=== PATIENT | female | born 1940 | race Caucasian/White ===

== ENCOUNTER 2016-12-02 12:48 | Emergency (ER) | payer MEDICARE, OTHER ==
[~2016-12-02] VITALS: Ht 152.4 cm; Wt 95.6 kg
[~2016-12-02 12:48] MED LIST: ATEN25TA PO; BACL10TA PO
[2016-12-02 12:55] VITALS: Ht 152.4 cm; Wt 95.6 kg
--- OUTSIDE RECORDS SUMMARY | 2016-12-02 13:01 | XMS REPORT | Referral Summary ---
Author Author [facility] Organization [facility] Address Unknown Phone Unavailable Care Team Providers Care Lens Edge Grinder Machine Name Role Phone Bassam Jacobsen Primary Care Physician [phone] Encounter Date(s): 12/26/15 - 12/26/15 [facility], [address] [place] [id number] Discharge Disposition: 01-Home or Self Care Attending Physician: Kenneth Jacobsen MD Admitting Physician: Kenneth Jacobsen MD Vital Signs Most recent to 1 oldest [Reference Range]: Blood Pressure 134/68 mmHg [90-140/60-90 mmHg] (12/26/15 10:43 AM) Problem List Condition Effective Dates Status Health Status Informant Acute mucoid otitis Active media of left ear(Confirmed) Angina/Chest Active pain(Confirmed) Acute bursitis of Active right shoulder(Confirmed) Hypertension(Confirm Active ed) Cerumen Active impaction(Confirmed) Irritable bowel Active syndrome(Confirmed) ISD(Confirmed) Active Osteoarthritis(Confi Active rmed) Stress Active incontinence(Confirm ed) Urinary Active incontinence(Confirm ed) Allergies, Adverse Reactions, Alerts Substance Reaction Severity Status penicillin Rash Active Phenergan with Codeine Active Medications atenolol 25 mg oral tablet See Instructions, TAKE ONE TABLET BY MOUTH TWICE DAILY, # 180 tabs, [facility], TAKE ONE TABLET BY MOUTH TWICE DAILY Start Date: 09/20/15 Status: Ordered baclofen 10 mg oral tablet 10 mg 1 tabs, Oral, TID, as needed for muscle spasm, 0 Refill(s) Start Date: 12/20/15 Status: Ordered Multivitamins oral tablet 1 tabs, Oral, Daily, 0 Refill(s) Start Date: 06/10/14 Status: Ordered Results Chemistry Most recent to 1 oldest [Reference Range]: Sodium Lvl [135-144 141 mEq/L mEq/L] (12/26/15 11:25 AM) Potassium Lvl 4.4 mEq/L [3.5-5.2 mEq/L] (12/26/15 11:25 AM) Chloride [99-111 104 mEq/L mEq/L] (12/26/15 11:25 AM) CO2 [22-31 mEq/L] 28 mEq/L (12/26/15 11:25 AM) AGAP [3-20] 9 (12/26/15 11:25 AM) BUN [10-20 mg/dL] 16 mg/dL (12/26/15 11:25 AM) Glucose Lvl [70-99 96 mg/dL mg/dL] (12/26/15 11:25 AM) Creatinine Lvl 1.11 mg/dL [0.57-1.11 mg/dL] (12/26/15 11:25 AM) eGFR [>60 mL/min] 48 mL/min 1 *ABN* (12/26/15 11:25 AM) Calcium Lvl 8.7 mg/dL [8.9-10.5 mg/dL] *LOW* (12/26/15 11:25 AM) 1Result Comment: Multiply eGFR results by 1.21 for race. Immunizations Vaccine Date Refusal Reason tetanus-diphth toxoids (Td) adult/adol 07/14/12 tetanus-diphth toxoids (Td) adult/adol 06/18/97 Procedures Procedure Date Related Diagnosis Body Site R TKA [facility] 10/26/10 Knee replacement L 11/08/05 Cystourethroscopy, and 3rd suburethral 04/29/02 collagen implant Cystourethroscopy, and 2nd suburethral 04/01/02 collagen implant Cystourethroscopy, and 1st suburethral 02/23/02 collagen implant Gall bladder Hysterectomy Social History Social History Type Response Smoking Status Never smoker Assessment and Plan Extracted from: Title: Ambulatory Patient Education Author: Kenneth Jacobsen MD Date: Preventive Medicine Managing Your High Blood Pressure Blood pressure is a measurement of how forceful your blood is pressing against the alvarze of the arteries. Arteries are muscular tubes within the circulatory system. Blood pressure does not stay the same. Blood pressure rises when you are active, excited, or nervous; and it lowers during sleep and relaxation. If the numbers measuring your blood pressure stay above normal most of the time, you are at risk for health problems. High blood pressure (hypertension) is a long-term (chronic) condition in which blood pressure is elevated. A blood pressure reading is recorded as two numbers, such as 120 over 80 (or 120 /80). The first, higher number is called the systolic pressure. It is a measure of the pressure in your arteries as the heart beats. The second, lower number is called the diastolic pressure. It is a measure of the pressure in your arteries as the heart relaxes between beats. Keeping your blood pressure in a normal range is important to your overall health and prevention of health problems, such as heart disease and stroke. When your blood pressure is uncontrolled, your heart has to work harder than normal. High blood pressure is a very common condition in adults because blood pressure tends to rise with age. Men and women are equally likely to have hypertension but at different times in life. Before age 45, men are more likely to have hypertension. After 65 years of age, women are more likely to have it. Hypertension is especially common in Americans. This condition often has no signs or symptoms. The cause of the condition is usually not known. Your caregiver can help you come up with a plan to keep your blood pressure in a normal, healthy range. BLOOD PRESSURE STAGES Blood pressure is classified into four stages: normal, prehypertension, stage 1 , and stage 2. Your blood pressure reading will be used to determine what type of treatment, if any, is necessary. Appropriate treatment options are tied to these four stages: Normal Systolic pressure (mm Hg): below 120. Diastolic pressure (mm Hg): below 80. Prehypertension Systolic pressure (mm Hg): 120 to 139. Diastolic pressure (mm Hg): 80 to 89. Stage1 Systolic pressure (mm Hg): 140 to 159. Diastolic pressure (mm Hg): 90 to 99. Stage2 Systolic pressure (mm Hg): 160 or above. Diastolic pressure (mm Hg): 100 or above. RISKS RELATED TO HIGH BLOOD PRESSURE Managing your blood pressure is an important responsibility. Uncontrolled high blood pressure can lead to: A heart attack. A stroke. A weakened blood vessel (aneurysm). Heart failure. Kidney damage. Eye damage. Metabolic syndrome. Memory and concentration problems. HOW TO MANAGE YOUR BLOOD PRESSURE Blood pressure can be managed effectively with lifestyle changes and medicines ( if needed). Your caregiver will help you come up with a plan to bring your blood pressure within a normal range. Your plan should include the following: Education Read all information provided by your caregivers about how to control blood pressure. Educate yourself on the latest guidelines and treatment recommendations. New research is always being done to further define the risks and treatments for high blood pressure. Lifestylechanges Control your weight. Avoid smoking. Stay physically active. Reduce the amount of salt in your diet. Reduce stress. Control any chronic conditions, such as high cholesterol or diabetes. Reduce your alcohol intake. Medicines Several medicines (antihypertensive medicines) are available, if needed, to bring blood pressure within a normal range. Communication Review all the medicines you take with your caregiver because there may be side effects or interactions. Talk with your caregiver about your diet, exercise habits, and other lifestyle factors that may be contributing to high blood pressure. See your caregiver regularly. Your caregiver can help you create and adjust your plan for managing high blood pressure. RECOMMENDATIONS FOR TREATMENT AND FOLLOW-UP The following recommendations are based on current guidelines for managing high blood pressure in non adults. Use these recommendations to identify the proper follow-up period or treatment option based on your blood pressure reading. You can discuss these options with your caregiver. Systolic pressure of 120 to 139 or diastolic pressure of 80 to 89: Follow up with your caregiver as directed. Systolic pressure of 140 to 160 or diastolic pressure of 90 to 100: Follow up with your caregiver within 2 months. Systolic pressure above 160 or diastolic pressure above 100: Follow up with your caregiver within 1 month. Systolic pressure above 180 or diastolic pressure above 110: Consider antihypertensive therapy; follow up with your caregiver within 1 week. Systolic pressure above 200 or diastolic pressure above 120: Begin antihypertensive therapy; follow up with your caregiver within 1 week. This information is not intended to replace advice given to you by your health care provider. Make sure you discuss any questions you have with your health care provider. Document Released: 05/20/2013 Document Reviewed: 05/20/2013 ExitCare Patient Information 2015 [employer]. No follow up information was provided. Extracted from: Title: Office Visit Note Author: Kenneth Jacobsen MD Date: 12/26/15 Assessment/Plan Hx of renal failure, Hx of renal failure Will repeat the BMP since the hospitals lab was found to be normal. If it is again abnormal I would like to get a renal sonogram. Keep the appointment to see the Parts Room Clerk. Ordered: Basic Metabolic Panel Office Visit Level 3 Est 69032 Hypertension Ordered: Office Visit Level 3 Est 67793
--- OUTSIDE RECORDS SUMMARY | 2016-12-02 13:01 | XMS REPORT | Referral Summary ---
Author Author [facility] Organization [facility] Address Unknown Phone Unavailable Care Team Providers Care Attendant Child Activity Name Role Phone Bassam Jacobsen Primary Care Physician [phone] Encounter Date(s): 11/11/15 - 11/11/15 [facility], [address] [place] [id number] Discharge Disposition: 01-Home or Self Care Attending Physician: Kenneth Jacobsen MD Admitting Physician: Kenneth Jacobsen MD Vital Signs Most recent to 1 oldest [Reference Range]: Peripheral Pulse 59 bpm Rate [60-100 bpm] *LOW* (11/11/15 2:25 PM) Blood Pressure 170/72 mmHg [90-140/60-90 mmHg] *HI* (11/11/15 2:25 PM) SpO2 96 % (11/11/15 2:25 PM) Problem List Condition Effective Dates Status Health Status Informant Acute mucoid otitis Active media of left ear(Confirmed) Angina/Chest Active pain(Confirmed) Acute bursitis of Active right shoulder(Confirmed) Hypertension(Confirm Active ed) Cerumen Active impaction(Confirmed) Irritable bowel Active syndrome(Confirmed) ISD(Confirmed) Active Osteoarthritis(Confi Active rmed) Stress Active incontinence(Confirm ed) Urinary Active incontinence(Confirm ed) Allergies, Adverse Reactions, Alerts Substance Reaction Severity Status penicillin Rash Active Medications atenolol 25 mg oral tablet See Instructions, TAKE ONE TABLET BY MOUTH TWICE DAILY, # 180 tabs, eRx: [facility], TAKE ONE TABLET BY MOUTH TWICE DAILY Start Date: 09/20/15 Status: Ordered Maxzide-25 oral tablet 1 tabs, Oral, Daily, # 30 tabs, 4 Refill(s), Pharmacy: [facility] Start Date: 11/11/15 Status: Ordered Multivitamins oral tablet 1 tabs, Oral, Daily, 0 Refill(s) Start Date: 06/10/14 Status: Ordered Results No data available for this section Immunizations Vaccine Date Refusal Reason tetanus-diphth toxoids [...] Smoking Status Never smoker Assessment and Plan No data available for this section
--- OUTSIDE RECORDS SUMMARY | 2016-12-02 13:01 | XMS REPORT | Referral Summary ---
Author Author [facility], [facility] Organization [facility] Address Unknown Phone Unavailable Care Team Providers Care Software Engineer Developer Name Role Phone Bassam Jacobsen Primary Care Physician [phone] Encounter VC Date(s): 07/31/16 - 07/31/16 [facility], [address] [place] [id number] Discharge Disposition: 01-Home or Self Care Attending Physician: Khanh Jacobsen Admitting Physician: Khanh Jacobsen Vital Signs Most recent to 1 oldest [Reference Range]: Blood Pressure 160/78 mmHg [90-140/60-90 mmHg] *HI* (07/31/16 1:16 PM) Problem List Condition Effective Dates Status Health Status Informant Acute mucoid otitis Active media of left ear(Confirmed) Angina/Chest Active pain(Confirmed) Acute bursitis of Active right shoulder(Confirmed) Hypertension(Confirm Active ed) Cerumen Active impaction(Confirmed) Irritable bowel Active syndrome(Confirmed) ISD(Confirmed) Active Morbid Active patient obesity(Confirmed) Osteoarthritis(Confi Active rmed) Stress Active incontinence(Confirm ed) Urinary Active incontinence(Confirm ed) Allergies, Adverse Reactions, Alerts Substance Reaction Severity Status penicillin Rash Active Phenergan with Codeine Active Medications atenolol 25 mg oral tablet See Instructions, TAKE ONE TABLET BY MOUTH TWICE DAILY, # 180 tabs, eRx: [facility], TAKE ONE TABLET BY MOUTH TWICE DAILY Start Date: 04/06/16 Status: Ordered Results No data available for this section Immunizations Vaccine Date Refusal Reason pneumococcal 13-valent conjugate vaccine 01/30/16 tetanus-diphth toxoids (Td) adult/adol 07/14/12 tetanus-diphth toxoids [...] smoker Assessment and Plan Extracted from: Title: Additional wellness note Author: Jorge Granados RN Date: 07/31/16 Patient states that she can not spell or subtract large numbers well enough to answer those pieces of the cognitive exam. Extracted from: Title: Ambulatory Patient Education Author: Jorge Granados RN Date: 07/31/16 Geriatrics Fall Prevention in the Home Falls can cause injuries. They can happen to people of all ages. There are many things you can do to make your home safe and to help prevent falls. WHAT CAN I DO ON THE OUTSIDE OF MY HOME? Regularly fix the edges of walkways and driveways and fix any cracks. Remove anything that might make you trip as you walk through a door, such as a raised step or threshold. Trim any bushes or trees on the path to your home. Use bright outdoor lighting. Clear any walking paths of anything that might make someone trip, such as rocks or tools. Regularly check to see if handrails are loose or broken. Make sure that both sides of any steps have handrails. Any raised decks and porches should have guardrails on the edges. Have any leaves, snow, or ice cleared regularly. Use sand or salt on walking paths during winter. Clean up any spills in your garage right away. This includes oil or grease spills. WHAT CAN I DO IN THE BATHROOM? Use night lights. Install grab bars by the toilet and in the tub and shower. Do not use towel bars as grab bars. Use non-skid mats or decals in the tub or shower. If you need to sit down in the shower, use a plastic, non-slip stool. Keep the floor dry. Clean up any water that spills on the floor as soon as it happens. Remove soap buildup in the tub or shower regularly. Attach bath mats securely with double-sided non-slip rug tape. Do not have throw rugs and other things on the floor that can make you trip. WHAT CAN I DO IN THE BEDROOM? Use night lights. Make sure that you have a light by your bed that is easy to reach. Do not use any sheets or blankets that are too big for your bed. They should not hang down onto the floor. Have a firm chair that has side arms. You can use this for support while you get dressed. Do not have throw rugs and other things on the floor that can make you trip. WHAT CAN I DO IN THE KITCHEN? Clean up any spills right away. Avoid walking on wet floors. Keep items that you use a lot in [id number] places. If you need to reach something above you, use a strong step stool that has a grab bar. Keep electrical cords out of the way. Do not use floor yakut or wax that makes floors slippery. If you must use wax, use non-skid floor wax. Do not have throw rugs and other things on the floor that can make you trip. WHAT CAN I DO WITH MY STAIRS? Do not leave any items on the stairs. Make sure that there are handrails on both sides of the stairs and use them. Fix handrails that are broken or loose. Make sure that handrails are as long as the stairways. Check any carpeting to make sure that it is firmly attached to the stairs. Fix any carpet that is loose or worn. Avoid having throw rugs at the top or bottom of the stairs. If you do have throw rugs, attach them to the floor with carpet tape. Make sure that you have a light switch at the top of the stairs and the bottom of the stairs. If you do not have them, ask someone to add them for you. WHAT ELSE CAN I DO TO HELP PREVENT FALLS? Wear shoes that: Do not have high heels. Have rubber bottoms. Are comfortable and fit you well. Are closed at the toe. Do not wear sandals. If you use a stepladder: Make sure that it is fully opened. Do not climb a closed stepladder. Make sure that both sides of the stepladder are locked into place. Ask someone to hold it for you, if possible. Clearly garrett and make sure that you can see: Any grab bars or handrails. First and last steps. Where the edge of each step is. Use tools that help you move around (mobility aids) if they are needed. These include: Canes. Walkers. Scooters. Crutches. Turn on the lights when you go into a dark area. Replace any light bulbs as soon as they burn out. Set up your furniture so you have a clear path. Avoid moving your furniture around. If any of your floors are uneven, fix them. If there are any pets around you, be aware of where they are. Review your medicines with your doctor. Some medicines can make you feel dizzy. This can increase your chance of falling. Ask your doctor what other things that you can do to help prevent falls. This information is not intended to replace advice given to you by your health care provider. Make sure you discuss any questions you have with your health care provider. Document Released: 06/22/2010 Document Revised: 01/10/2016 Document Reviewed: Elsevier Interactive Patient Education 2016 [employer] No follow up information was provided.
--- OUTSIDE RECORDS SUMMARY | 2016-12-02 13:02 | XMS REPORT | Referral Summary ---
Author Organization Unknown Address Unknown Phone Unavailable Care Team Providers Care Loan Review Analyst Name Role Phone Bassam Jacobsen Primary Care Physician [phone] Encounter VC Date(s): 01/03/15 - 01/03/15 [facility], [place], Family [address] [place], [place] [id number] Discharge Diagnosis: Urinary incontinence Discharge Diagnosis: Osteoarthritis Discharge Disposition: Home or Self Care Attending Physician: Veena Oakes APRN Admitting Physician: Veena Oakes APRN Vital Signs Most recent to 1 oldest [Reference Range]: Blood Pressure 128/82 mmHg [90-140/60-90 mmHg] (01/03/15 8:44 AM) Problem List Condition Effective Dates Status Health Status Informant Angina/Chest Active pain(Confirmed) Acute bursitis of Active right shoulder(Confirmed) Hypertension(Confirm Active ed) Irritable bowel Active syndrome(Confirmed) ISD(Confirmed) Active Osteoarthritis(Confi Active rmed) Stress Active incontinence(Confirm ed) Urinary Active incontinence(Confirm ed) Allergies, Adverse Reactions, Alerts Substance Reaction Severity Status penicillin Rash Active Medications atenolol 25 mg oral tablet See Instructions, TAKE ONE TABLET BY MOUTH TWICE DAILY, # 90 tabs, 1 Refill(s), eRx: [facility], TAKE ONE TABLET BY MOUTH TWICE DAILY Special Instructions: TAKE ONE TABLET BY MOUTH TWICE DAILY Start Date: 11/01/14 Status: Ordered Mobic 7.5 mg oral tablet 1 tabs, Oral, BID, # 60 tabs, 0 Refill(s), Pharmacy: [facility], 1 tabs Oral BID Start Date: 08/31/14 Status: Ordered Multivitamins oral tablet 1 tabs, [...] Extracted from: Title: Ambulatory Patient Education Author: Veena Oakes APRN Date: Family Medicine Urinary Incontinence Urinary incontinence is the involuntary loss of urine from your bladder. CAUSES There are many causes of urinary incontinence. They include: Medicines. Infections. Prostatic enlargement, leading to overflow of urine from your bladder. Surgery. Neurological diseases. Emotional factors. SIGNS AND SYMPTOMS Urinary Incontinence can be divided into four types: 1. Urge incontinence. Urge incontinence is the involuntary loss of urine before you have the opportunity to go to the bathroom. There is a sudden urge to void but not enough time to reach a bathroom. 2. Stress incontinence. Stress incontinence is the sudden loss of urine with any activity that forces urine to pass. It is commonly caused by anatomical changes to the pelvis and sphincter areas of your body. 3. Overflow incontinence. Overflow incontinence is the loss of urine from an obstructed opening to your bladder. This results in a backup of urine and a resultant buildup of pressure within the bladder. When the pressure within the bladder exceeds the closing pressure of the sphincter, the urine overflows, which causes incontinence, similar to water overflowing a dam. 4. Total incontinence. Total incontinence is the loss of urine as a result of the inability to store urine within your bladder. DIAGNOSIS Evaluating the cause of incontinence may require: A thorough and complete medical and obstetric history. A complete physical exam. Laboratory tests such as a urine culture and sensitivities. When additional tests are indicated, they can include: An ultrasound exam. Kidney and bladder X-rays. Cystoscopy. This is an exam of the bladder using a narrow scope. Urodynamic testing to test the nerve function to the bladder and sphincter areas. TREATMENT Treatment for urinary incontinence depends on the cause: For urge incontinence caused by a bacterial infection, antibiotics will be prescribed. If the urge incontinence is related to medicines you take, your health care provider may have you change the medicine. For stress incontinence, surgery to re-establish anatomical support to the bladder or sphincter, or both, will often correct the condition. For overflow incontinence caused by an enlarged prostate, an operation to open the channel through the enlarged prostate will allow the flow of urine out of the bladder. In women with fibroids, a hysterectomy may be recommended. For total incontinence, surgery on your urinary sphincter may help. An artificial urinary sphincter (an inflatable cuff placed around the urethra) may be required. In women who have developed a hole-like passage between their bladder and vagina (vesicovaginal fistula ), surgery to close the fistula often is required. HOME CARE INSTRUCTIONS Normal daily hygiene and the use of pads or adult diapers that are changed regularly will help prevent odors and skin damage. Avoid caffeine. It can overstimulate your bladder. Use the bathroom regularly. Try about every 23 hours to go to the bathroom, even if you do not feel the need to do so. Take time to empty your bladder completely. After urinating, wait a minute. Then try to urinate again. For causes involving nerve dysfunction, keep a log of the medicines you take and a journal of the times you go to the bathroom. SEEK MEDICAL CARE IF: You experience worsening of pain instead of improvement in pain after your procedure. Your incontinence becomes worse instead of better. SEE IMMEDIATE MEDICAL CARE IF: You experience fever or shaking chills. You are unable to pass your urine. You have redness spreading into your groin or down into your thighs. MAKE SURE YOU: (Understand these instructions. Will watch your condition. Will get help right away if you are not doing well or get worse. Document Released: 10/03/2005 Document Revised: 06/16/2014 Document Reviewed: ExitCare Patient Information 2014 [employer]. No follow up information was provided. Extracted from: Title: Office Visit Note Author: Veena Oakes APRN Date: 01/03/15 Assessment/Plan Urinary incontinence Will review records and call pt. later today with a plan of care and possible trial of medication. Pt. to schedule exam, Mammogram, and Dexa screening. RTC/IC/ER if symptoms not improving or worsen. Ordered: Office Visit Level 3 Est 01490
--- OUTSIDE RECORDS SUMMARY | 2016-12-02 13:02 | XMS REPORT ---
Author Author Canelo Horowitz S Organization Unknown Address [address] [place], [place] [id number] Phone Care Team Providers Care Professor Of Literacy Name Role Phone Delmar SOLOMON PP Unavailable Unavailable Reason for Referral No Reason for Referral was given. History of Present Illness No HPI available. 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 Encounters * Appointment 01/01/2013 * RTNPT , Provider: Lor Lemos, Status: Avelino , Time: 8:00 AM 2012
--- OUTSIDE RECORDS SUMMARY | 2016-12-02 13:02 | XMS REPORT | Referral Summary ---
Author Author [facility], [facility] Organization [facility] Address Unknown Phone Unavailable Care Team Providers Care Auto Body Estimator Name Role Phone Bassam Jacobsen Primary Care Physician [phone] Encounter Date(s): 04/15/15 - 04/15/15 [facility], [address] [place] [id number] Discharge Diagnosis: Acute bronchitis Discharge Disposition: 01-Home or Self Care Attending Physician: Timothy Carroll MD Admitting Physician: Timothy Carroll MD Vital Signs Most recent to 1 oldest [Reference Range]: Temperature Tympanic 36.7 degC [36.6-38.1 degC] (04/15/15 3:55 PM) Respiratory Rate 16 br/min [14-20 br/min] (04/15/15 3:55 PM) Blood Pressure 158/80 mmHg [90-140/60-90 mmHg] *HI* (04/15/15 3:55 PM) Problem List Condition Effective Dates Status [...] MOUTH TWICE DAILY, # 180 tabs, eRx: [facility], TAKE ONE TABLET BY MOUTH TWICE DAILY Start Date: 09/20/15 Status: Ordered Multivitamins oral tablet 1 tabs, [...] smoker Assessment and Plan Extracted from: Title: Office Visit Note Author: Timothy Carroll MD Date: 04/15/15 Assessment/Plan Acute bronchitis I recommended Levaquin 500 mg daily for 10 days. She may use [id number] Mucinex. Continue Tessalon as needed. If symptoms persist or worsen or further problems develop follow-up. Ordered: Office Visit Level 3 Est 11010 Orders: levofloxacin, 500 mg 1 tabs, Oral, q24hr, X 10 days, # 10 tabs, 0 Refill(s), Pharmacy: [facility], 1 tabs Oral q24hr,x10 days
--- OUTSIDE RECORDS SUMMARY | 2016-12-02 13:02 | XMS REPORT | Referral Summary ---
Author Author [facility] Organization [facility] Address Unknown Phone Unavailable Care Team Providers Care Blasting Machine Operator Name Role Phone Bassam Jacobsen Primary Care Physician [phone] Encounter Date(s): 01/30/16 - 01/30/16 [facility], [address] [place] [id number] Discharge Disposition: 01-Home or Self Care Attending Physician: Kenneth Jacobsen MD Admitting Physician: Kenneth Jacobsen MD Vital Signs No data available for this section Problem List Condition Effective Dates Status Health [...] MOUTH TWICE DAILY, # 180 tabs, eRx: [facility], TAKE ONE TABLET BY MOUTH TWICE DAILY Start Date: 12/30/15 Status: Ordered baclofen 10 mg oral tablet [...]
--- OUTSIDE RECORDS SUMMARY | 2016-12-02 13:02 | XMS REPORT | Referral Summary ---
Author Author [facility] Organization [facility] Address Unknown Phone Unavailable Care Team Providers Care Junior Recruiter Name Role Phone Bassam Jacobsen Primary Care Physician [phone] Encounter VC Date(s): 12/09/15 - 12/09/15 [facility], [address] [place] [id number] Discharge Diagnosis: Viral URI Discharge Diagnosis: Hypertension Discharge Disposition: 01-Home or Self Care Attending Physician: Kenneth Jacobsen MD Admitting Physician: Kenneth Jacobsen MD Vital Signs Most recent to 1 oldest [Reference Range]: Blood Pressure 136/60 mmHg [90-140/60-90 mmHg] (12/09/15 9:11 AM) Problem List Condition Effective Dates Status [...] MOUTH TWICE DAILY, # 180 tabs, eRx: [facility], TAKE ONE TABLET BY MOUTH TWICE DAILY Start Date: 09/20/15 Status: Ordered Maxzide-25 oral tablet 1 tabs, Oral, Daily, # 30 tabs, 4 Refill(s), Pharmacy: [facility] Start Date: 11/11/15 Status: Ordered Multivitamins oral tablet 1 tabs, Oral, Daily, 0 Refill(s) Start Date: 06/10/14 Status: Ordered Promethazine VC with Codeine oral syrup 5 mL, Oral, q4hr, as needed for cough, # 120 mL, 0 Refill(s) Start Date: 12/09/15 Stop Date: 12/19/15 Status: Ordered Results Chemistry Most recent to 1 oldest [Reference Range]: Sodium Lvl [135-144 138 mEq/L mEq/L] (12/09/15 9:45 AM) Potassium Lvl 3.9 mEq/L [3.5-5.2 mEq/L] (12/09/15 9:45 AM) Chloride [99-111 100 mEq/L mEq/L] (12/09/15 9:45 AM) CO2 [22-31 mEq/L] 29 mEq/L (12/09/15 9:45 AM) AGAP [3-20] 9 (12/09/15 9:45 AM) BUN [10-20 mg/dL] 27 mg/dL *HI* (12/09/15 9:45 AM) Glucose Lvl [70-99 101 mg/dL mg/dL] *HI* (12/09/15 9:45 AM) Creatinine Lvl 1.82 mg/dL [0.57-1.11 mg/dL] *HI* (12/09/15 9:45 AM) eGFR [>60 mL/min] 27 mL/min 1 *ABN* (12/09/15 9:45 AM) Calcium Lvl 8.5 mg/dL [8.9-10.5 mg/dL] *LOW* (12/09/15 9:45 AM) 1Result Comment: Multiply eGFR results by [...] Patient Education Author: Kenneth Jacobsen MD Date: 12/08 ENT Upper Respiratory Infection Most upper respiratory infections (URIs) are a viral infection of the air passages leading to the lungs. A URI affects the nose, throat, and upper air passages. The most common type of URI is nasopharyngitis and is typically referred to as "the common cold." URIs run their course and usually go away on their own. Most of the time, a URI does not require medical attention, but sometimes a bacterial infection in the upper airways can follow a viral infection. This is called a secondary infection. Sinus and middle ear infections are common types of secondary upper respiratory infections. Bacterial pneumonia can also complicate a URI. A URI can worsen asthma and chronic obstructive pulmonary disease (COPD). Sometimes, these complications can require emergency medical care and may be life threatening. CAUSES Almost all URIs are caused by viruses. A virus is a type of germ and can spread from one person to another. RISKS FACTORS You may be at risk for a URI if: You smoke. You have chronic heart or lung disease. You have a weakened defense (immune) system. You are very young or very old. You have nasal allergies or asthma. You work in crowded or poorly ventilated areas. You work in health care facilities or schools. SIGNS AND SYMPTOMS Symptoms typically develop 23 days after you come in contact with a cold virus. Most viral URIs last 710 days. However, viral URIs from the influenza virus (flu virus) can last 1418 days and are typically more severe. Symptoms may include: Runny or stuffy (congested) nose. Sneezing. Cough. Sore throat. Headache. Fatigue. Fever. Loss of appetite. Pain in your forehead, behind your eyes, and over your cheekbones (sinus pain). Muscle aches. DIAGNOSIS Your health care provider may diagnose a URI by: Physical exam. Tests to check that your symptoms are not due to another condition such as: Strep throat. Sinusitis. Pneumonia. Asthma. TREATMENT A URI goes away on its own with time. It cannot be cured with medicines, but medicines may be prescribed or recommended to relieve symptoms. Medicines may help: Reduce your fever. Reduce your cough. Relieve nasal congestion. HOME CARE INSTRUCTIONS Take medicines only as directed by your health care provider. Gargle warm saltwater or take cough drops to comfort your throat as directed by your health care provider. Use a warm mist humidifier or inhale steam from a shower to increase air moisture. This may make it easier to breathe. Drink enough fluid to keep your urine clear or pale yellow. Eat soups and other clear broths and maintain good nutrition. Rest as needed. Return to work when your temperature has returned to normal or as your health care provider advises. You may need to stay home longer to avoid infecting others. You can also use a face mask and careful hand washing to prevent spread of the virus. Increase the usage of your inhaler if you have asthma. Do not use any tobacco products, including cigarettes, chewing tobacco, or electronic cigarettes. If you need help quitting, ask your health care provider. PREVENTION The best way to protect yourself from getting a cold is to practice good hygiene. Avoid oral or hand contact with people with cold symptoms. Wash your hands often if contact occurs. There is no clear evidence that vitamin C, vitamin E, echinacea, or exercise reduces the chance of developing a cold. However, it is always recommended to get plenty of rest, exercise, and practice good nutrition. SEEK MEDICAL CARE IF: You are getting worse rather than better. Your symptoms are not controlled by medicine. You have chills. You have worsening shortness of breath. You have brown or red mucus. You have yellow or brown nasal discharge. You have pain in your face, especially when you bend forward. You have a fever. You have swollen neck glands. You have pain while swallowing. You have white areas in the back of your throat. SEEK IMMEDIATE MEDICAL CARE IF: You have severe or persistent: Headache. Ear pain. Sinus pain. Chest pain. You have chronic lung disease and any of the following: Wheezing. Prolonged cough. Coughing up blood. A change in your usual mucus. You have a stiff neck. You have changes in your: Vision. Hearing. Thinking. Mood. MAKE SURE YOU: Understand these instructions. Will watch your condition. Will get help right away if you are not doing well or get worse. This information is not intended to replace advice given to you by your health care provider. Make sure you discuss any questions you have with your health care provider. Document Released: 02/19/2002 Document Revised: 06/14/2015 Document Reviewed: [facility] Patient Information 2015 [employer] [facility]. Fgxe-[id number] Kidney Failure Kidney failure happens when the kidneys cannot remove waste and excess fluid that naturally builds up in your blood after your body breaks down food. This leads to a dangerous buildup of waste products and fluid in the blood. HOME CARE Follow your diet as told by your doctor. Take all medicines as told by your doctor. Keep all of your dialysis appointments. Call if you are unable to keep an appointment. GET HELP RIGHT AWAY IF: You make a lot more or very little pee (urine). Your face or ankles puff up (swell). You develop shortness of breath. You develop weakness, feel tired, or you do not feel hungry (appetite loss). You feel poorly for no known reason. MAKE SURE YOU: Understand these instructions. Will watch your condition. Will get help right away if you are not doing well or get worse. This information is not intended to replace advice given to you by your health care provider. Make sure you discuss any questions you have with your health care provider. Document Released: 11/20/2010 Document Revised: 11/17/2012 Document Reviewed: [employer] Patient Information 2015 [employer]. No follow up information was provided.
--- OUTSIDE RECORDS SUMMARY | 2016-12-02 13:02 | XMS REPORT | Referral Summary ---
Author Author [facility] Organization [facility] Address Unknown Phone Unavailable Care Team Providers Care Feed Preparation Operator Name Role Phone Bassam Jacobsen Primary Care Physician [phone] Encounter Date(s): 12/14/15 - 12/14/15 [facility], [address] [place] [id number] Discharge Diagnosis: Drug reaction Discharge Diagnosis: Hypertension Discharge Diagnosis: Moderate dehydration Discharge Disposition: 01-Home or Self Care Attending Physician: Kenneth Jacobsen MD Admitting Physician: Kenneth Jacobsen MD Vital Signs Most recent to 1 oldest [Reference Range]: Temperature Tympanic 36.5 degC [36.6-38.1 degC] *LOW* (12/14/15 9:12 AM) Blood Pressure 122/52 mmHg [90-140/60-90 mmHg] (12/14/15 9:12 AM) Problem List Condition Effective Dates Status [...] MOUTH TWICE DAILY, # 180 tabs, eRx: [facility], TAKE ONE TABLET BY MOUTH TWICE DAILY Start Date: 09/20/15 Status: Ordered Maxzide-25 oral tablet 1 tabs, Oral, Daily, # 30 tabs, 4 Refill(s), Pharmacy: [facility] Start Date: 11/11/15 Status: Ordered Multivitamins oral tablet 1 tabs, Oral, Daily, 0 Refill(s) Start Date: 06/10/14 Status: Ordered Results Chemistry Most recent to 1 oldest [Reference Range]: Sodium Lvl [135-144 138 mEq/L mEq/L] (12/14/15 10:15 AM) Potassium Lvl 3.6 mEq/L [3.5-5.2 mEq/L] (12/14/15 10:15 AM) Chloride [99-111 103 mEq/L mEq/L] (12/14/15 10:15 AM) CO2 [22-31 mEq/L] 28 mEq/L (12/14/15 10:15 AM) AGAP [3-20] 7 (12/14/15 10:15 AM) BUN [10-20 mg/dL] 35 mg/dL *HI* (12/14/15 10:15 AM) Glucose Lvl [70-99 102 mg/dL mg/dL] *HI* (12/14/15 10:15 AM) Creatinine Lvl 1.93 mg/dL [0.57-1.11 mg/dL] *HI* (12/14/15 10:15 AM) eGFR [>60 mL/min] 25 mL/min 1 *ABN* (12/14/15 10:15 AM) Calcium Lvl 8.1 mg/dL [8.9-10.5 mg/dL] *LOW* (12/14/15 10:15 AM) 1Result Comment: Multiply eGFR results by [...] Patient Education Author: Kenneth Jacobsen MD Date: 12/13 Allergy Drug Allergy Allergic reactions to medicines are common. Some allergic reactions are mild. A delayed type of drug allergy that occurs 1 week or more after exposure to a medicine or vaccine is called serum sickness. A life-threatening, sudden (acute ) allergic reaction that involves the whole body is called anaphylaxis. CAUSES "True" drug allergies occur when there is an allergic reaction to a medicine. This is caused by overactivity of the immune system. First, the body becomes sensitized. The immune system is triggered by your first exposure to the medicine. Following this first exposure, future exposure to the same medicine may be life-threatening. Almost any medicine can cause an allergic reaction. Common ones are: Penicillin. Sulfonamides (sulfa drugs). Local anesthetics. X-ray dyes that contain iodine. SYMPTOMS Common symptoms of a minor allergic reaction are: Swelling around the mouth. An itchy red rash or hives. Vomiting or diarrhea. Anaphylaxis can cause swelling of the mouth and throat. This makes it difficult to breathe and swallow. Severe reactions can be fatal within seconds, even after exposure to only a trace amount of the drug that causes the reaction. HOME CARE INSTRUCTIONS If you are unsure of what caused your reaction, write down: The names of the medicines you took. How much medicine you took. How you took the medicine, such as whether you took a pill, injected the medicine, or applied it to your skin. All of the things you ate and drank. The date and time of your reaction. The symptoms of the reaction. You may want to follow up with an hydrotechnical specialist after the reaction has cleared in order to be tested to confirm the allergy. It is important to confirm that your reaction is an allergy, not just a side effect to the medicine. If you have a true allergy to a medicine, this may prevent that medicine and related medicines from being given to you when you are very ill. If you have hives or a rash: Take medicines as directed by your caregiver. You may use an szdu-wey-rhacteg antihistamine (diphenhydramine) as needed. Apply cold compresses to the skin or take baths in cool water. Avoid hot baths or showers. If you are severely allergic: Continuous observation after a severe reaction may be needed. Hospitalization is often required. Wear a medical alert bracelet or necklace stating your allergy. You and your family must learn how to use an anaphylaxis kit or give an epinephrine injection to temporarily treat an emergency allergic reaction. If you have had a severe reaction, always carry your epinephrine injection or anaphylaxis kit with you. This can be lifesaving if you have a severe reaction. Do not drive or perform tasks after treatment until the medicines used to treat your reaction have worn off, or until your caregiver says it is okay. If you have a drug allergy that was confirmed by your health care provider: Carry information about the drug allergy with you at all times. Always check with a pharmacist before taking any jtsz-tth-lgkdtft medicine. SEEK MEDICAL CARE IF: You think you had an allergic reaction. Symptoms usually start within 30 minutes after exposure. Symptoms are getting worse rather than better. You develop new symptoms. The symptoms that brought you to your caregiver return. SEEK IMMEDIATE MEDICAL CARE IF: You have swelling of the mouth, difficulty breathing, or wheezing. You have a tight feeling in your chest or throat. You develop hives, swelling, or itching all over your body. You develop severe vomiting or diarrhea. You feel faint or pass out. This is an emergency. Use your epinephrine injection or anaphylaxis kit as you have been instructed. Call for emergency medical help. Even if you improve after the injection, you need to be examined at a hospital emergency department. MAKE SURE YOU: Understand these instructions. Will watch your condition. Will get help right away if you are not doing well or get worse. This information is not intended to replace advice given to you by your health care provider. Make sure you discuss any questions you have with your health care provider. Document Released: 08/26/2006 Document Revised: 06/14/2015 Document Reviewed: [facility] Patient Information 2015 [employer] [facility]. Home Health Care Dehydration, Adult Dehydration is when you lose more fluids from the body than you take in. Vital organs like the kidneys, brain, and heart cannot function without a proper amount of fluids and salt. Any loss of fluids from the body can cause dehydration. CAUSES Vomiting. Diarrhea. Excessive sweating. Excessive urine output. Fever. SYMPTOMS Mild dehydration Thirst. Dry lips. Slightly dry mouth. Moderate dehydration Very dry mouth. Sunken eyes. Skin does not bounce back quickly when lightly pinched and released. Dark urine and decreased urine production. Decreased tear production. Headache. Severe dehydration Very dry mouth. Extreme thirst. Rapid, weak pulse (more than 100 beats per minute at rest). Cold hands and feet. Not able to sweat in spite of heat and temperature. Rapid breathing. Blue lips. Confusion and lethargy. Difficulty being awakened. Minimal urine production. No tears. DIAGNOSIS Your caregiver will diagnose dehydration based on your symptoms and your exam. Blood and urine tests will help confirm the diagnosis. The diagnostic evaluation should also identify the cause of dehydration. TREATMENT Treatment of mild or moderate dehydration can often be done at home by increasing the amount of fluids that you drink. It is best to drink small amounts of fluid more often. Drinking too much at one time can make vomiting worse. Refer to the home care instructions below. Severe dehydration needs to be treated at the hospital where you will probably be given intravenous (IV) fluids that contain water and electrolytes. HOME CARE INSTRUCTIONS Ask your caregiver about specific rehydration instructions. Drink enough fluids to keep your urine clear or pale yellow. Drink small amounts frequently if you have nausea and vomiting. Eat as you normally do. Avoid: Foods or drinks high in sugar. Carbonated drinks. Juice. Extremely hot or cold fluids. Drinks with caffeine. Fatty, greasy foods. Alcohol. Tobacco. Overeating. Gelatin desserts. Wash your hands well to avoid spreading bacteria and viruses. Only take kqph-fwb-mlkcjzf or prescription medicines for pain, discomfort , or fever as directed by your caregiver. Ask your caregiver if you should continue all prescribed and over-the- counter medicines. Keep all follow-up appointments with your caregiver. SEEK MEDICAL CARE IF: You have abdominal pain and it increases or stays in one area (localizes) . You have a rash, stiff neck, or severe headache. You are irritable, sleepy, or difficult to awaken. You are weak, dizzy, or extremely thirsty. SEEK IMMEDIATE MEDICAL CARE IF: You are unable to keep fluids down or you get worse despite treatment. You have frequent episodes of vomiting or diarrhea. You have blood or green matter (bile) in your vomit. You have blood in your stool or your stool looks black and tarry. You have not urinated in 6 to 8 hours, or you have only urinated a small amount of very dark urine. You have a fever. You faint. MAKE SURE YOU: Understand these instructions. Will watch your condition. Will get help right away if you are not doing well or get worse. This information is not intended to replace advice given to you by your health care provider. Make sure you discuss any questions you have with your health care provider. Document Released: 08/26/2006 Document Revised: 11/17/2012 Document Reviewed: [employer] Patient Information [address] [employer]. No follow up information was provided. Extracted from: Title: Office Visit Note Author: Kenneth Jacobsen MD Date: 12/14/15 Assessment/Plan Acute renal failure (ARF) Recheck the renal function and referral to a rigging worker. Stop the Maxzide and avoid the Advil, Aleve and Motrin. Ordered: Basic Metabolic Panel Office Visit Level 4 Est 14455 Drug reaction make a note of the reaction and place it in the allergic reaction list. Ordered: Office Visit Level 4 Est 50198 Hypertension Ordered: Office Visit Level 4 Est 61399 Moderate dehydration Encourage to drink the fluids. Ordered: Office Visit Level 4 Est 77553
--- OUTSIDE RECORDS SUMMARY | 2016-12-02 13:02 | XMS REPORT | Continuity of Care Document ---
Author Author [facility] Address Unknown Phone Unavailable Allergies Medications Problems Procedures Results Encounters ACCT No. Visit Date/Time Discharge Status Pt. Type Provider Facility Loc./Unit Complaint [id number] 02/14/2015 14:10:00 2014 23:59:59 CLS Outpatient [facility]
--- OUTSIDE RECORDS SUMMARY | 2016-12-02 13:02 | XMS REPORT | Referral Summary ---
Author Author [facility] Organization [facility] Address Unknown Phone Unavailable Care Team Providers Care Compensation Associate Name Role Phone Bassam Jacobsen Primary Care Physician [phone] Encounter VC Date(s): 10/27/15 - 10/27/15 [facility], Family [address] [place] [id number] Discharge Disposition: 01-Home or Self Care Attending Physician: Kenneth Jacobsen MD Admitting Physician: Kenneth Jacobsen MD Vital Signs Most recent to 1 oldest [Reference Range]: Blood Pressure 150/84 mmHg [90-140/60-90 mmHg] *HI* (10/27/15 10:07 AM) Problem List Condition Effective Dates Status [...] MOUTH TWICE DAILY, # 180 tabs, eRx: [facility], TAKE ONE TABLET BY MOUTH [...] Patient Education Author: Kenneth Jacobsen MD Date: ENT Cerumen Impaction The structures of the external ear canal secrete a waxy substance known as cerumen. Excess cerumen can build up in the ear canal, causing a condition known as cerumen impaction. Cerumen impaction can cause ear pain and disrupt the function of the ear. The rate of cerumen production differs for each individual. In certain individuals, the configuration of the ear canal may decrease his or her ability to naturally remove cerumen. CAUSES Cerumen impaction is caused by excessive cerumen production or buildup. RISK FACTORS Frequent use of swabs to clean ears. Having narrow ear canals. Having eczema. Being dehydrated. SIGNS AND SYMPTOMS Diminished hearing. Ear drainage. Ear pain. Ear itch. TREATMENT Treatment may involve: Xwfz-itm-wurvxun or prescription ear drops to soften the cerumen. Removal of cerumen by a health care provider. This may be done with: Irrigation with warm water. This is the most common method of removal. Ear curettes and other instruments. Surgery. This may be done in severe cases. HOME CARE INSTRUCTIONS Take medicines only as directed by your health care provider. Do not insert objects into the ear with the intent of cleaning the ear. PREVENTION Do not insert objects into the ear, even with the intent of cleaning the ear. Removing cerumen as a part of normal hygiene is not necessary, and the use of swabs in the ear canal is not recommended. Drink enough water to keep your urine clear or pale yellow. Control your eczema if you have it. SEEK MEDICAL CARE IF: You develop ear pain. You develop bleeding from the ear. The cerumen does not clear after you use ear drops as directed. This information is not intended to replace advice given to you by your health care provider. Make sure you discuss any questions you have with your health care provider. Document Released: 10/03/2005 Document Revised: 06/14/2015 Document Reviewed: ExitCare Patient Information 2015 [employer] [facility], [facility]. No follow up information was provided. Extracted from: Title: Office Visit Note Author: Kenneth Jacobsen MD Date: 10/27/15 Assessment/Plan Cerumen impaction as above. Suggest using baby oil on a Q-tip for the external canals. Ordered: Office Visit Level 3 Est [address]009
--- OUTSIDE RECORDS SUMMARY | 2016-12-02 13:02 | XMS REPORT | Referral Summary ---
Author Author [facility] Organization [facility] Address Unknown Phone Unavailable Care Team Providers Care Tape Control Skin Or Spar Mill Operator Name Role Phone Bassam Jacobsen Primary Care Physician [phone] Encounter Date(s): 04/06/15 - 04/06/15 [facility], [address] [place] [id number] [[email or web address] Discharge Disposition: 01-Home or Self Care Attending Physician: Kenneth Jacobsen MD Admitting Physician: Kenneth Jacobsen MD Vital Signs Most recent to 1 oldest [Reference Range]: Blood Pressure 162/86 mmHg [90-140/60-90 mmHg] *HI* (04/06/15 1:06 PM) Problem List Condition Effective Dates Status [...] MOUTH TWICE DAILY, # 180 tabs, eRx: [facility], TAKE ONE TABLET BY MOUTH [...] Patient Education Author: Kenneth Jacobsen MD Date: Family Medicine Otitis Media Otitis media is redness, soreness, and swelling (inflammation) of the middle ear. Otitis media may be caused by allergies or, most commonly, by infection. Often it occurs as a complication of the common cold. SIGNS AND SYMPTOMS Symptoms of otitis media may include: Earache. Fever. Ringing in your ear. Headache. Leakage of fluid from the ear. DIAGNOSIS To diagnose otitis media, your health care provider will examine your ear with an otoscope. This is an instrument that allows your health care provider to see into your ear in order to examine your eardrum. Your health care provider also will ask you questions about your symptoms. TREATMENT Typically, otitis media resolves on its own within 35 days. Your health care provider may prescribe medicine to ease your symptoms of pain. If otitis media does not resolve within 5 days or is recurrent, your health care provider may prescribe antibiotic medicines if he or she suspects that a bacterial infection is the cause. HOME CARE INSTRUCTIONS Take your medicine as directed until it is gone, even if you feel better after the first few days. Only take llsu-cfn-gyeeihh or prescription medicines for pain, discomfort, or fever as directed by your health care provider. Follow up with your health care provider as directed. SEEK MEDICAL CARE IF: You have otitis media only in one ear, or bleeding from your nose, or both. You notice a lump on your neck. You are not getting better in 35 days. You feel worse instead of better. SEEK IMMEDIATE MEDICAL CARE IF: You have pain that is not controlled with medicine. You have swelling, redness, or pain around your ear or stiffness in your neck. You notice that part of your face is paralyzed. You notice that the bone behind your ear (mastoid) is tender when you touch it. MAKE SURE YOU: Understand these instructions. Will watch your condition. Will get help right away if you are not doing well or get worse. Document Released: 05/31/2005 Document Revised: 08/31/2014 Document Reviewed: ExitCare Patient Information 2015 [employer], [facility]. This information is not intended to replace advice given to you by your health care provider. Make sure you discuss any questions you have with your health care provider. No follow up information was provided. Extracted from: Title: Office Visit Note Author: Kenneth Jacobsen MD Date: 04/06/15 Assessment/Plan Acute mucoid otitis media of left ear Rx for a Z-pack. Phenergan VC with codeine. Ordered: Office Visit Level 3 Est 45391
--- NOTE | 2016-12-02 13:14 | ERPDOC ---
Departure Disposition Decision Date: Dec 02, 2016 Disposition Decision Time: 14:22 (VALERIA GLASER APRN) Disposition: 01 DISCHARGED HOME, SELF-CARE Impression Impression (VALERIA GLASER APRN) Impression: Primary Impression: Viral gastroenteritis Condition: Stable Seen By: Mid-level only (VALERIA GLASER APRN) Referrals: ANA BLOOM MD (Family) Patient Instructions: Gastroenteritis (ED) Problems/Meds/Labs Reviewed?: Yes Medications reviewed and manag: Yes (VALERIA GLASER APRN) Additional Instructions: Your labs and history are consistent with a viral gastroenteritis (see dismissal packet). Stay well hydrated. Drink 8 glasses of water daily. Eat a BRAT diet:Brat Diet Includes: Bananas, Rice, Applesauce, and [place]. Rest. Follow treatment plan. If symptoms are not improving in the next 3-4 days follow with your PCP for re- evaluation, sooner if worsting symptoms. Follow up care ordered?: Yes Mental Status: Alert, Oriented (VALERIA GLASER APRN) HPI - Abdominal Pain General Chief Complaint: Nausea,Vomiting,Diarrhea Stated Complaint: V/D Time Seen by Provider: 13:11 Source: patient (VALERIA GLASER APRN) Time Seen by Provider: 13:11 (LATOYA DE JESUS DO) HPI - Abdominal Pain Initial Comments 76 YO F presents to ED with 2 days of greenish diarrhea. Patient says that her brought her home food from the [employer] the night before symptoms began. Says when she woke up the next morning she vomited a large amount. Then she developed the diarrhea. Patient says she has had several diarrhea stool for past 2 days (unable to tell provider home many). Patient denies fever, chills, nausea, any additional vomiting. Admits mild generalized "soreness in abdomen". Patient says she feel tired that is why she came to the ED. Patient has been taking Imodium and Kaopectate for diarrhea. Patient says she is able to eat toast without any diarrhea but other foods "bring on diarrhea". Pain Scale: Now: 0/10 Location: generalized abdomen Associated Symptoms: other (diarrhea), DENIES: back pain, chest pain, diaphoresis, fatigue, fever/chills, headache, heartburn, rash, shortness of breath, swelling/mass in abdomen, syncope, weakness (VALERIA GLASER A SPEECH PATHOLOGIST ASSISTANT) Allergies: Coded Allergies: Penicillins (Verified Allergy, Unknown, RASH, 12/02/16) adhesive (Verified Allergy, Unknown, 12/02/16) Past History Unable to Obtain PMH Due to: other (Patient is poor historian) (VALERIA GLASER SPEECH PATHOLOGIST ASSISTANT) Past Medical History Metabolic: hypertension Cardiac: DENIES: angina Respiratory: DENIES: asthma GI: gallbladder disease, ulcers Female: UTI, renal insufficiency Neurological: other (see neurologist but unsure why), DENIES: seizures Psychological: DENIES: depression (VALERIA GLASER SPEECH PATHOLOGIST ASSISTANT) Surgical History General: appendix, gallbladder, tonsils Reproductive/: hysterectomy Joint: knee (VALERIA GLASER SPEECH PATHOLOGIST ASSISTANT) Family History Family PMH: FOUND: NM, diabetes, hypertension (VALERIA GLASER SPEECH PATHOLOGIST ASSISTANT) Vaccines Hx Influenza Vaccination: No Hx Pneumococcal Vaccination: No (ADELE GLASERS A SPEECH PATHOLOGIST ASSISTANT) Social History Sexuality: male partner (VALERIA GLASER APRN) Review of Systems Constitutional Constitutional: DENIES: chills, dizziness, fever (ADELE GLASERS A SPEECH PATHOLOGIST ASSISTANT) Eyes General: DENIES: erythema, exudate Lids/Accessories: DENIES: erythema, swelling (ADELE GLASERS A SPEECH PATHOLOGIST ASSISTANT) ENMT Ears: DENIES: pain Hearing: DENIES: hearing loss Sinuses: DENIES: congestion, rhinorrhea Mouth/Throat: DENIES: sore throat (ADELE GLASERS A SPEECH PATHOLOGIST ASSISTANT) Cardiovascular Cardiac: DENIES: chest pain, murmur Rhythm/Rate: DENIES: palpitations (ADELE GLASERS A SPEECH PATHOLOGIST ASSISTANT) Pulmonary Respiratory: DENIES: cough, dyspnea (ADELE GLASERS A SPEECH PATHOLOGIST ASSISTANT) GI Upper Abdomen: pain, see HPI, vomiting, DENIES: nausea Lower Abdomen: diarrhea, pain (ADELE GLASERS A SPEECH PATHOLOGIST ASSISTANT) General: DENIES: dysuria, pain (ADELE GLASERS A SPEECH PATHOLOGIST ASSISTANT) Musculoskeletal General: DENIES: joint pain, pain, tenderness (ADELE GLASERS A SPEECH PATHOLOGIST ASSISTANT) Integumentary Skin: DENIES: color change, itching, rash (ADELE GLASERS A SPEECH PATHOLOGIST ASSISTANT) Neurological General: DENIES: ataxia, change in strength, numbness, paralysis/paresis, weakness (ADELE GLASERS A SPEECH PATHOLOGIST ASSISTANT) Psychiatric Psychiatric: DENIES: anxiety, depression, nervousness (ADELE GLASERS A SPEECH PATHOLOGIST ASSISTANT) Physical Exam General General Nourishment: well nourished, well developed, no acute distress, adult General Body Habitus: well groomed (ADELE GLASERS A SPEECH PATHOLOGIST ASSISTANT) Vitals and Pain First Documented Vital Signs Date Time Temp Pulse Resp B/P Pulse Ox O2 Delivery O2 Flow Rate FiO2 12/02/16 12:55 97.7 88 20 202/88 96 Room Air (LATOYA DE JESUS DO) Vitals and Pain Weight: Kilograms: 95.600 Height (feet): 5 Height (inches): 0 Triage Pain Scale: (ADELE GLASERS A SPEECH PATHOLOGIST ASSISTANT) Eyes (brief) Eyes Brief: found: EOMI, PERRL (ADELE GLASERS A SPEECH PATHOLOGIST ASSISTANT) ENMT (brief) ENMT Brief: FOUND: TM clear, TM good light reflex, mucosa moist, NOT FOUND: nasal exudate, nasal swelling, pharnyx erythema (ADELE GLASERS A SPEECH PATHOLOGIST ASSISTANT) Neck (brief) Neck: FOUND: trachea midline, NOT FOUND: adenopathy, spasm, tenderness, thyromegaly (ADELE GLASERS A SPEECH PATHOLOGIST ASSISTANT) Respiratory (brief) Respiratory: FOUND: clear all sullivan, equal bilaterally, symmetrical (ADELE GLASERS A SPEECH PATHOLOGIST ASSISTANT) Cardiovascular (brief) Cardiac: FOUND: regular rate, regular rhythm (ADELE GLASERS A SPEECH PATHOLOGIST ASSISTANT) Abdomen Inspection: NOT FOUND: distention Palpation: FOUND: soft, tender (mild epigastric TTP), NOT FOUND: involuntary guarding, voluntary guarding Auscultation: FOUND: hypoactive (x4) (ADELE GLASERS A SPEECH PATHOLOGIST ASSISTANT) Musculoskeletal (brief) Musculoskeletal Brief: NOT FOUND: deformity, tenderness (ADELE GLASERS A SPEECH PATHOLOGIST ASSISTANT) Integumentary (brief) Integumentary Brief: FOUND: dry, pink, warm (ADELE GLASERS A SPEECH PATHOLOGIST ASSISTANT) Neurologic (brief) Neurological Brief: FOUND: CN w/o gross def to obs, motor-no gross deficits, sensory-no gross deficits (ADELE GLASERS A SPEECH PATHOLOGIST ASSISTANT) Psychiatric (brief) Psychiatric Brief: FOUND: alert, normal affect, oriented (ADELE GLASERS A SPEECH PATHOLOGIST ASSISTANT ) Differential Diagnoses Considering: Dehydration, Diverticulitis, Food Poisoning, Gastroenteritis, Hypokalemia, Viral Syndrome (ADELE GLASERS A SPEECH PATHOLOGIST ASSISTANT) Progress Results/Orders Orders Procedure Category Date Status Time Cbc W/Auto LAB 12/02/16 Complete Diff-Reflex Manual Cmp - Comprehensive LAB 12/02/16 Complete Metabolic (LATOYA DE JESUS DO) Lab Results Laboratory Tests Test 12/02/16 13:43 White Blood Count 5.9T/MM3 Red Blood Count 5.31M/MM3 Hemoglobin 15.4GM/DL Hematocrit 46.5% Mean Corpuscular Volume 87.6UM3 Mean Corpuscular Hemoglobin 29.0UUG Mean Corpuscular Hemoglobin Concent 33.1GM/DL RDW Standard Deviation 42.6FL Platelet Count 166T/MM3 Mean Platelet Volume 10.4UM3 Immature Granulocyte % (Auto) 0.2% Neutrophils (%) (Auto) 47.7% Lymphocytes (%) (Auto) 33.5% Monocytes (%) (Auto) 12.2% Eosinophils (%) (Auto) 6.1% Basophils (%) (Auto) 0.3% Absolute Immature Granulocyte (auto 0.01T/MM3 Absolute Neutrophils (auto) 2.8T/MM3 Absolute Lymphocytes (auto) 2.0T/MM3 Absolute Monocytes (auto) 0.7T/MM3 Absolute Eosinophils (auto) 0.4T/MM3 Absolute Basophils (auto) 0.0T/MM3 Turbidity < 20 Sodium Level 144MEQ/L Potassium Level 4.1MEQ/L Chloride Level 112MEQ/L Carbon Dioxide Level 24MEQ/L Anion Gap 8MEQ/L Blood Urea Nitrogen 16.0MG/DL Creatinine 1.1MG/DL Glomerular Filtration Rate Calc 48 BUN/Creatinine Ratio 15RATIO Glucose Level 93MG/DL Calculated Osmolality 278MOSM/KG Calcium Level 8.9MG/DL Total Bilirubin 0.90MG/DL Icterus Index < 2 Aspartate Amino Transf (AST/SGOT) 36U/L Alanine Aminotransferase (ALT/SGPT) 32U/L Alkaline Phosphatase 56U/L Total Protein 6.8G/DL Albumin 3.7G/DL Globulin 3.1G/DL Albumin/Globulin Ratio 1.2RATIO Chemistry Specimen Hemolysis < 15 (LATOYA DE JESUS DO) Progress Progress WBC 5.9 viral shift Patient potassium is normal, chemistries do not indicate dehydration. Patient has had no diarrhea stools while in the ER. I discussed with patient lab results. Labs, exam finding and HPI consistent with viral gastroenteritis. I discussed treatment plan, follow-up as needed with PCP next week if not improving and return precautions which patient verbalized understanding. (VALERIA GLASER APRN) VALERIA GLASER APRN Dec 02, 2016 13:14 LATOYA DE JESUS DO Dec 02, 2016 20:05
[2016-12-02] MEDS ORDERED: BISM262O PO (13:15)
[2016-12-02] MEDS ORDERED: [UNRECOGNIZED DRUG - CODE] PO (13:15)
--- NOTE | 2016-12-02 13:15 | NUR ---
PROVIDER Solange GLASER APRN AT BEDSIDE FOR EXAM.
[2016-12-02] MEDS ORDERED: NAPR220T61 PO (13:16)
--- OUTSIDE RECORDS SUMMARY | 2016-12-02 13:35 | XMS REPORT | Continuity of Care Document ---
Author Author [facility] Address Unknown Phone Unavailable Allergies Medications Problems Procedures Results Encounters ACCT No. Visit Date/Time Discharge Status Pt. Type Provider Facility Loc./Unit Complaint [id number] 02/14/2015 14:10:00 2014 23:59:59 C[facility]
[2016-12-02 13:48] LABS: BASOPHILS % (AUTO) 0.3 % (0-2); EOSINOPHILS # (AUTO) 0.4 T/MM3 (0-0.5); EOSINOPHILS % (AUTO) 6.1 % (0-4); HCT - HEMATOCRIT 46.5 % (36-46); HGB - HEMOGLOBIN 15.4 GM/DL (12-16); IMMATURE GRANULOCYTE # (AUTO) 0.01 T/MM3 (0.00-0.03); IMMATURE GRANULOCYTE % (AUTO) 0.2 % (0.0-0.5); LYMPHOCYTES % (AUTO) 33.5 % (23-45); MEAN CORPUSCULAR HGB CONC(MCHC 33.1 GM/DL (31-37); MEAN CORPUSCULAR VOLUME 87.6 UM3 (80-100); MEAN PLATELET VOLUME 10.4 UM3 (9.4-12.4); MONOCYTES # (AUTO) 0.7 T/MM3 (0-0.8); MONOCYTES % (AUTO) 12.2 % (0-9.0); NEUTROPHILS #(AUTO)-ABSOLUTE 2.8 T/MM3 (1.8-7.7); NEUTROPHILS % (AUTO) 47.7 % (33-66); RED BLOOD COUNT 5.31 M/MM3 (4.00-5.20); WBC - WHITE BLOOD COUNT 5.9 T/MM3 (4.5-11.0)
[2016-12-02 13:57] LABS: ALBUMIN 3.7 G/DL (3.5-5.0); ALBUMIN/GLOBULIN RATIO 1.2 RATIO (1.1-2.2); ALKALINE PHOSPHATASE 56 U/L (38-126); ALT (SGPT) 32 U/L (9-52); ANION GAP 8 MEQ/L (5-15); AST (SGOT) 36 U/L (14-36); BUN/CREATININE RATIO 15 RATIO (6-26); CALCIUM 8.9 MG/DL (8.4-10.2); CHLORIDE 112 MEQ/L (98-107); CO2 - CARBON DIOXIDE 24 MEQ/L (22-30); CREATININE 1.1 MG/DL (0.7-1.2); GLOMERULAR FILTRATION RATE 48; GLUCOSE 93 MG/DL (65-110); POTASSIUM 4.1 MEQ/L (3.6-5); SODIUM 144 MEQ/L (134-144); TOTAL PROTEIN 6.8 G/DL (6.3-8.2)
[2016-12-02 15:24] VITALS: BP 178/77; PULSE 63; RESP 18; TEMP 97.7; O2SAT 98
--- NOTE | 2016-12-02 15:24 | NUR ---
DISCHARGE WRITTEN INSTRUCTIONS REVIEWED AND SENT WITH PT, REENFORCING F/U CARE WITH PCP TO MONITOR BP OR TO RETURN TO ER IF BECOME SYMPTOMATIC. PT VERBALIZES UNDERSTANDING OF DI, DENIES QUESTIONS. CONTINUES TO DENY PAIN. PT AMBULATES OUT OF ED WITH STEADY GAIT ACCOMP BY SPOUSE AT THIS TIME.
== END 2016-12-02 15:24 | disposition home or self-care (01) ==
LOC: ED 12:48
DX: A08.4 Viral intestinal infection, unspecified (principal)
CPT/HCPCS: 80053; 85025